=== PATIENT | female | born 1975 | race African-American/Black ===

== ENCOUNTER 2021-09-17 01:49 | Emergency (ER) | payer OTHER ==
[~2021-09-17] VITALS: Ht 188 cm; Wt 90.7 kg
--- NOTE | 2021-09-17 02:00 | NUR ---
Patient BIB [facility] accompanied by [employer] from [facility] c/o of chest pain, sudden onset, nonradiating. Patient was given nitro and ASA COPY READER. VSS, NAD.
--- NOTE | 2021-09-17 02:10 | NUR ---
SAURABH GUTIÉRREZ at bedside for MSE.
[2021-09-17] MEDS ORDERED: HYDROCODONE/APAP 10-325 MG TABLET PO ONE (02:15)
[2021-09-17] MEDS ORDERED: ONDANSETRON ODT 4 MG TAB.RAPDIS SL ONE (02:15)
[2021-09-17] MEDS ORDERED: NITROGLYCERIN OINT 1 GM PACKET TP ONE ×2 (02:15→02:46)
[2021-09-17 02:40] VITALS: BP 134/75
[2021-09-17] MEDS ORDERED: ONDANSETRON ODT 4 MG TAB.RAPDIS ONE (02:46)
[2021-09-17] MEDS ORDERED: HYDROCODONE/APAP 10-325 MG TABLET ONE (02:46)
[2021-09-17 02:53] LABS: HEMATOCRIT 39.8 % (31.2-41.9); MEAN CORPUSCULAR HEMOGLOBIN 30.7 uug (24.7-32.8); MEAN CORPUSCULAR VOLUME 90.5 fL (75.5-95.3); PLATELET COUNT (AUTO) 233 K/uL (179-408)
[2021-09-17 03:00] LABS: CARBON DIOXIDE 29 mmol/L (21-32); CHLORIDE 103 mmol/L (98-107); CREATININE 1.2 mg/dL (0.6-1.3); GLUCOSE 108 mg/dL (74-106); POTASSIUM 4.1 mmol/L (3.5-5.1); UREA NITROGEN, BLOOD 14 mg/dL (7-18)
[2021-09-17 03:09] LABS: ETHANOL < 3 MG/DL (0-0)
[2021-09-17 03:13] LABS: ALANINE AMINOTRANSFERASE 25 U/L (14-59); ALKALINE PHOSPHATASE 81 U/L (50-136); ASPARTATE AMINOTRANSFERASE 21 U/L (15-37); BILIRUBIN,DIRECT 0.1 mg/dL (0.0-0.2); BILIRUBIN,TOTAL 0.5 mg/dL (0.2-1.0)
[2021-09-17 03:15] LABS: ACETAMINOPHEN < 2.0 ug/mL (10-30)
--- NOTE | 2021-09-17 03:15 | NUR ---
Urine done and sent to lab.
[2021-09-17 03:40] LABS: *BILIRUBIN,URIN NEGATIVE (NEGATIVE); *BLOOD, URINE NEGATIVE (NEGATIVE); *CLARITY,URINE CLEAR (CLEAR); *COLOR,URINE YELLOW (YELLOW); *KETONES,URINE NEGATIVE (NEGATIVE); LEUKOCYTE ESTERASE ,URINE TRACE (NEGATIVE); NITRITE, URINE NEGATIVE (NEGATIVE); PH,URINE 6.5 (5.0-8.0); UGLUCOSE NEGATIVE (NEGATIVE)
[2021-09-17 03:49] LABS: *AMPHETAMINE, URINE POSITIVE (NEGATIVE); *CANNABINOID, URINE NEGATIVE (NEGATIVE); *COCCAINE, URINE NEGATIVE (NEGATIVE); *OPIATE, URINE NEGATIVE (NEGATIVE); *PHENCYCLIDINE SCREEN,URINE NEGATIVE (NEGATIVE)
[2021-09-17 03:51] LABS: BACTERIA,URINE MANY /HPF (NONE SEEN); RBC,URINE 0-3 /HPF (0-3); SQUAMOUS EPITHELIAL CELL,UR FEW /HPF (NONE SEEN)
--- NOTE | 2021-09-17 06:20 | NUR ---
Called [facility], spoke with Art regarding patient's voluntary psychiatric admission and faxed patient's clinical summary.
--- NOTE | 2021-09-17 12:41 | NUR ---
PT WAS TRANSFERED TO [facility] VIA BLS AMBULANCE. REPORT WAS GIVEN TO REED HOLLAND AND TO AMSULANCE EMT.
== END 2021-09-17 12:44 ==
LOC: ER 02:04
DX: R07.9 Chest pain, unspecified (principal); F32.A Depression, unspecified; F17.210 Nicotine dependence, cigarettes, uncomplicated; F15.10 Other stimulant abuse, uncomplicated; Z59.01 Sheltered homelessness; Z79.890 Hormone replacement therapy; R00.0 Tachycardia, unspecified; Z20.822 Contact with and (suspected) exposure to COVID-19; F41.9 Anxiety disorder, unspecified; R91.8 Other nonspecific abnormal finding of lung field
CPT/HCPCS: 36415; 71045; 84484; 85025; 85730; 87077; 87086; 93005; A4663; G0480; Q0162

== ENCOUNTER 2022-01-19 03:03 | Inpatient (IN) | payer OTHER ==
[~2022-01-19] VITALS: Ht 188 cm; Wt 113.4 kg
--- NOTE | 2022-01-19 03:20 | NUR ---
pt came in for c/o cough and sob for 6 days.
--- NOTE | 2022-01-19 03:30 | NUR ---
Dr. Dai in room for JANUSZ.
[2022-01-19 03:49] LABS: HEMATOCRIT 38.7 % (31.2-41.9); MEAN CORPUSCULAR HEMOGLOBIN 30.5 uug (24.7-32.8); MEAN CORPUSCULAR VOLUME 90.6 fL (75.5-95.3); PLATELET COUNT (AUTO) 249 K/uL (179-408)
[2022-01-19 03:53] LABS: CREATININE 1.1 mg/dL (0.6-1.3); POTASSIUM 4.1 mmol/L (3.5-5.1)
[2022-01-19] MEDS ORDERED: DEXAMETHASONE SOD PHOSPHATE 4 MG INJ IV ONE (04:00)
[2022-01-19] MEDS ORDERED: DOXYCYCLINE HYCLATE 100 MG TABLET PO ONE (04:00)
[2022-01-19] MEDS ORDERED: CEFTRIAXONE 1 G in IV DEXTROSE 5% 50 ML IV ONE (04:15)
[2022-01-19] MEDS ORDERED: DEXAMETHASONE SOD PHOSPHATE 10 MG INJ ONE ×2 (04:17→04:18)
[2022-01-19] MEDS ORDERED: DOXYCYCLINE HYCLATE 100 MG TABLET ONE (04:17)
[2022-01-19] MEDS ORDERED: CEFTRIAXONE /D5W 50ML IVPB **ER PYXIS IV ONE (04:30)
[2022-01-19] MEDS ORDERED: ASPIRIN 81 MG TAB.CHEW PO ONE (05:30)
[2022-01-19] MEDS ORDERED: FUROSEMIDE 20 MG TABLET PO ONE (05:30)
--- NOTE | 2022-01-19 05:33 | NUR ---
pt pulled out her iv despite multiple iv attempts two nurses are unable to obtain iv access. A midline was ordered by the er md.
[2022-01-19] MEDS ORDERED: ASPIRIN 81 MG TAB.CHEW ONE (05:37)
[2022-01-19] MEDS ORDERED: CEFTRIAXONE 1 G VIAL ONE (05:37)
[2022-01-19] MEDS ORDERED: FUROSEMIDE 40 MG TABLET ONE (05:38)
[2022-01-19] MEDS ORDERED: LIDOCAINE HCL 1% 20 ML VIAL ONE (05:39)
[2022-01-19] MEDS ORDERED: CEFTRIAXONE 1 G VIAL IM ONE (05:45)
[2022-01-19 06:11] LABS: *BILIRUBIN,URIN NEGATIVE (NEGATIVE); *CLARITY,URINE CLOUDY (CLEAR); *COLOR,URINE YELLOW (YELLOW); *KETONES,URINE NEGATIVE (NEGATIVE); LEUKOCYTE ESTERASE ,URINE 2+ (NEGATIVE); NITRITE, URINE POSITIVE (NEGATIVE); PH,URINE 5.5 (5.0-8.0); UGLUCOSE NEGATIVE (NEGATIVE)
[2022-01-19 06:12] LABS: *BLOOD, URINE TRACE (NEGATIVE)
[2022-01-19] MEDS ORDERED: ESTR0.5T PO (06:12)
[2022-01-19 06:17] LABS: BACTERIA,URINE MANY /HPF (NONE SEEN); SQUAMOUS EPITHELIAL CELL,UR MANY /HPF (NONE SEEN); WBC,URINE 80-100 /HPF (0-3)
[2022-01-19 06:22] LABS: *AMPHETAMINE, URINE POSITIVE (NEGATIVE); *CANNABINOID, URINE NEGATIVE (NEGATIVE); *COCCAINE, URINE NEGATIVE (NEGATIVE); *OPIATE, URINE NEGATIVE (NEGATIVE); *PHENCYCLIDINE SCREEN,URINE NEGATIVE (NEGATIVE)
[2022-01-19] MEDS ORDERED: ACETAMINOPHEN 325 MG TABLET PO PRN (06:45)
[2022-01-19] MEDS ORDERED: ONDANSETRON 4 MG/2 ML VIAL IV PRN (06:45)
[2022-01-19] MEDS ORDERED: CEFTRIAXONE 1 G in IV DEXTROSE 5% 50 ML IV SCH (06:45)
[2022-01-19] MEDS ORDERED: MAGNESIUM HYDROXIDE 30 ML LIQUID UDC PO PRN (06:45)
[2022-01-19] MEDS ORDERED: REMEDY ESSENTIAL ZINC PASTE 113 GM TP PRN (06:45)
[2022-01-19] MEDS ORDERED: IPRATROPIUM BROMIDE 0.5 MG/2.5 ML NEBU NEB PRN (06:45)
[2022-01-19] MEDS ORDERED: ALBUTEROL SULFATE 1.25 MG/3 ML NEBU NEB PRN (06:45)
--- NOTE | 2022-01-19 06:45 | NUR ---
PATIENTS OXYCODONE 10MG COUNTED WITH ANOTHER RN AND TAKEN DOWN TO PHARMACY PER PROTOCOL. ALL NEEDS ATTENDED.
[2022-01-19] MEDS ORDERED: ENOXAPARIN SODIUM 40 MG/0.4 ML DISP.SYRIN SQ ONE (08:57)
[2022-01-19] MEDS: ENOXAPARIN SODIUM 40 MG/0.4 ML DISP.SYRIN SQ SCH (09:15)
[2022-01-19] MEDS: IV NS 1000 ML 1,000 ML IV PRN ×2 (10:00→21:09)
[2022-01-19] MEDS ORDERED: SWABABLE VALVE TRANSFER SET EA MC ONE (10:07)
[2022-01-19] MEDS ORDERED: IOHEXOL 350 100 ML INFUS..BTL ONE (10:07)
[2022-01-19] MEDS ORDERED: IV NORMAL SALINE 250 ML IV ONE (10:07)
[2022-01-19] MEDS ORDERED: methylPREDNISolone SOD SUCC 40 MG/ML VIAL ONE (14:14)
[2022-01-19] MEDS: methylPREDNISolone SOD SUCC 40 MG/ML VIAL IV SCH ×2 (14:19→22:04)
--- NOTE | 2022-01-19 19:18 | NUR ---
Assumed care of patient from day shift RN. Patient lying in bed, asleep. Appears comfortable. No coughing noted at this time.
--- NOTE | 2022-01-19 20:20 | NUR ---
RECEIVED PATIENT VIA GURNEY FROM ER. PATIENT IS A/O X4. DENIES ANY PAIN UPON ADMISSION TO THE FLOOR. NO RESP. DISTRESS NOTED. VS WNL. HEPLOCK NOTED TO RIGHT FA #20 GAUGE. ORIENTED TO ROOM AND CALL LIGHT. CALL LIGHT IN REACH. ALL NEEDS ATTENDED. WILL CONTINUE TO MONITOR AND ASSESS.
--- NOTE | 2022-01-19 20:30 | NUR ---
Pt. admitted to Medical surgical floor room 327, under care of Dr. Gonzalez. Belongs List completed.
[2022-01-19] MEDS ORDERED: CEFTRIAXONE 2 G in IV DEXTROSE 5% 100 ML IV SCH (21:00)
[2022-01-19 21:30] VITALS: BP 108/48
[2022-01-20 04:24] VITALS: BP 114/82
[2022-01-20] MEDS: methylPREDNISolone SOD SUCC 40 MG/ML VIAL IV SCH (06:13)
[2022-01-20 06:35] LABS: HEMATOCRIT 37.5 % (31.2-41.9); MEAN CORPUSCULAR VOLUME 90.7 fL (75.5-95.3); PLATELET COUNT (AUTO) 285 K/uL (179-408)
[2022-01-20 06:48] LABS: CREATININE 1.3 mg/dL (0.6-1.3); MAGNESIUM 1.8 mg/dL (1.8-2.4); PHOSPHOROUS 3.1 mg/dL (2.5-4.9); POTASSIUM 4.4 mmol/L (3.5-5.1)
[2022-01-20] MEDS ORDERED: LOSARTAN POTASSIUM 25 MG TABLET PO SCH (09:00)
[2022-01-20] MEDS: ENOXAPARIN SODIUM 40 MG/0.4 ML DISP.SYRIN SQ SCH (09:26)
[2022-01-20] MEDS: IV NS 1000 ML 1,000 ML IV PRN (09:49)
[2022-01-20] MEDS ORDERED: AZITHROMYCIN IV 500 MG in IV DEXTROSE 5% 250 ML IV SCH (11:00)
[2022-01-20 11:38] VITALS: BP 124/88
--- NOTE | 2022-01-20 12:15 | NUR ---
IV SITE IS VERY POSITIONAL AND PATIENT IS A VERY HARD STICK MD NOTIFIED WITH NEW ORDERS AND NOTED.
--- NOTE | 2022-01-20 13:58 | NUR ---
Social work consult was requested for a patient on [facility] for homeless resources. Patient is 46-year-old female admitted to the hospital for pneumonia. Upon social science research assistant assessment, patient is alert and oriented X3. Patient could not state the date. Patient appears lethargic. Patient presents with congruent mood and full range affect. Patient presents with poor judgement and insight. SW explored patients support system. Patient states her primary contact centre supervisor is her grandmother, James Tubbs ([phone]) and they have a good relationship. Patient states that her grandmother, James ([phone]) lives in [place], [place]. Patient states that she is living at [address] [place] [id number] [facility] ([phone]) for nine months. SW gave the patient homeless resources and placed them in the chart. Homeless waiver was signed and given to the patient and a copy was placed in the chart. SW explored patients financial status. Patient states that she is receiving social security disability. Patient is not currently driving. SW explored patients history of substance abuse. Patient states that she has a history of using crystal meth and states that she hasnt used crystal meth for over a month. The toxicology screening reports positive for amphetamine. SW offered patient resources for substance abuse from [address] [address] ([phone]), [facility] [address] [facility] [address] ([phone]), and [address] [address] ([phone]). The patient refused the resources. SW placed the resources in the patients chart. SW explored patients history of psychiatric diagnosis. Patient states she has a history of bipolar disorder, major depression and schizoaffective disorder. Patient states she has been seeing a therapist for over a year. Patient states she is not currently taking any medication. Patient denies suicidal or homicidal ideation. The discharge plan is to be discharged to be discharged to [address] [address] [facility] ([phone]). Patient will be offered a TAP card if needed. This loan underwriter spoke with Gus, nurse outreach case manager, who will follow up with discharge plan.
[2022-01-20 16:00] VITALS: BP 115/67
[2022-01-20] MEDS ORDERED: ALPRAZOLAM 0.5 MG TABLET PO PRN (16:00)
--- NOTE | 2022-01-20 16:29 | NUR ---
PATIENT IS VERY ANXIOUS WANTS TO LEAVE STATED TAKES MARIJUANA AT HOME TO RELAX NEEDS SOMETHING TO RELAX DR LOVELACE NOTIFIED WITH ORDER FOR XANAX GIVEN AT THIS TIME ORDERED PATIENT REASSURED THAT HE NEEDS TO BE IN THE HOSPITAL A WHILE LONGER BECAUSE HE NEEDS HIS IV ANTIBIOTICS AND HE EXPRESSED UNDERSTANDING.WILL CONTINUE TO OBSERVE.
--- NOTE | 2022-01-20 18:45 | NUR ---
DR JESSICA HERE TO SEE PATIENT BUT PATIENT WAS IN THE BATHROOM AND HE STATED WILL ATTEMPT TO COME BACK TO SEE PATIENT TONITE IVF DISCONNECTED AT THIS TIME PER PATIENTS REQUEST STATED NEED TO REST FOR A WHILE WILL ENDORSE TO RECONNECT LATER.
--- NOTE | 2022-01-20 19:05 | NUR ---
PATIENT IN HALLWAY, APPEARS UPSET, STATING HE WANTS TO GET HIS MEDICATION AND LEAVE. RN AT PATIENTS SIDE. RN REMOVED MID-LINE NOTED TO LEFT UPPER ARM AND PATIENT SIGNED AMA FORM. PATIENT LEFT FACILITY IN STABLE CONDITION. NOTIFIED OF PATIENTS AMA.
[2022-01-20] MEDS ORDERED: ATORVASTATIN 10 MG TABLET PO SCH (21:00)
[2022-01-21] MEDS ORDERED: ESTRADIOL 1 MG TABLET PO SCH (09:00)
[2022-01-21] MEDS ORDERED: ESTRADIOL PO SCH (09:00)
== END 2022-01-20 19:15 | disposition left against medical advice (07) | DRG 720 ==
LOC: ER 03:06 → TRANSITION 07:44 → MEDSURG3 20:17
PROVIDERS: ADMIT Nurse Practitioner Acute Care; ATTEND Internal Medicine
PROC: 05H633Z Insertion of Infusion Device into Left Subclavian Vein, Percutaneous Approach (ICD-10-PCS; principal; 2022-01-20)
PROC: B547ZZA Ultrasonography of Left Subclavian Vein, Guidance (ICD-10-PCS; principal; 2022-01-20)
DX: A41.9 Sepsis, unspecified organism (principal); I50.23 Acute on chronic systolic (congestive) heart failure; J18.9 Pneumonia, unspecified organism; J90 Pleural effusion, not elsewhere classified; I42.7 Cardiomyopathy due to drug and external agent; N39.0 Urinary tract infection, site not specified; Z20.822 Contact with and (suspected) exposure to COVID-19; Z59.00 Homelessness unspecified; F19.10 Other psychoactive substance abuse, uncomplicated; F17.210 Nicotine dependence, cigarettes, uncomplicated; F15.10 Other stimulant abuse, uncomplicated; R73.03 Prediabetes; R77.8 Other specified abnormalities of plasma proteins; I34.0 Nonrheumatic mitral (valve) insufficiency; I25.10 Atherosclerotic heart disease of native coronary artery without angina pectoris; E05.90 Thyrotoxicosis, unspecified without thyrotoxic crisis or storm; B96.20 Unspecified Escherichia coli [E. coli] as the cause of diseases classified elsewhere; F99 Mental disorder, not otherwise specified
CPT/HCPCS: 36415; 71045; 71275; 83605; 83735; 84100; 84443; 84484; 85025; 87040; 87077; 87086; 93005; 93307; A4663; G0378; J0456; J0696; J1100; J1650; J2920; J3490; J7040; J7050; Q9967; U0003

== ENCOUNTER 2022-01-25 04:26 | Emergency (ER) | payer OTHER ==
[~2022-01-25] VITALS: Ht 188 cm; Wt 113.4 kg
[~2022-01-25 04:26] MED LIST: ESTR0.5T PO
--- NOTE | 2022-01-25 04:40 | NUR ---
Dr. De La Paz at bedside for MSE
[2022-01-25] MEDS ORDERED: HYDROMORPHONE 1 MG/1 ML DISP.SYRIN IV ONE (04:45)
[2022-01-25] MEDS ORDERED: ONDANSETRON 4 MG/2 ML VIAL IV ONE (04:45)
[2022-01-25] MEDS ORDERED: HYDROMORPHONE 1 MG/1 ML DISP.SYRIN ONE (05:00)
[2022-01-25] MEDS ORDERED: ONDANSETRON 4 MG/2 ML VIAL ONE (05:00)
--- NOTE | 2022-01-25 05:42 | NUR ---
Lab at bedside
[2022-01-25] MEDS ORDERED: levoFLOXacin 750MG/D5W 150 ML IV ONE (05:43)
[2022-01-25] MEDS ORDERED: levoFLOXacin 750 MG/D5W 150 ML PIGGYBACK IV ONE (05:45)
[2022-01-25 05:47] LABS: *BILIRUBIN,URIN NEGATIVE (NEGATIVE); *BLOOD, URINE NEGATIVE (NEGATIVE); *CLARITY,URINE CLEAR (CLEAR); *COLOR,URINE YELLOW (YELLOW); *KETONES,URINE NEGATIVE (NEGATIVE); *UROBILINOGEN,URINE 0.2 E.U./dl (NORMAL); LEUKOCYTE ESTERASE ,URINE NEGATIVE (NEGATIVE); NITRITE, URINE NEGATIVE (NEGATIVE); PH,URINE 5.5 (5.0-8.0); UGLUCOSE NEGATIVE (NEGATIVE)
[2022-01-25 05:59] LABS: *AMPHETAMINE, URINE POSITIVE (NEGATIVE); *CANNABINOID, URINE NEGATIVE (NEGATIVE); *COCCAINE, URINE NEGATIVE (NEGATIVE); *OPIATE, URINE NEGATIVE (NEGATIVE); *PHENCYCLIDINE SCREEN,URINE NEGATIVE (NEGATIVE)
[2022-01-25 06:20] LABS: PLATELET COUNT (AUTO) 282 K/uL (179-408)
[2022-01-25 06:22] LABS: HEMATOCRIT 37.9 % (31.2-41.9); MEAN CORPUSCULAR HEMOGLOBIN 30.4 uug (24.7-32.8); MEAN CORPUSCULAR VOLUME 91.8 fL (75.5-95.3)
[2022-01-25 07:08] LABS: ALANINE AMINOTRANSFERASE 63 U/L (14-59); ALKALINE PHOSPHATASE 89 U/L (50-136); ASPARTATE AMINOTRANSFERASE 49 U/L (15-37); BILIRUBIN,DIRECT 0.1 mg/dL (0.0-0.2); BILIRUBIN,TOTAL 0.4 mg/dL (0.2-1.0); CARBON DIOXIDE 25 mmol/L (21-32); CHLORIDE 106 mmol/L (98-107); CREATININE 1.1 mg/dL (0.6-1.3); GLUCOSE 131 mg/dL (74-106); POTASSIUM 4.5 mmol/L (3.5-5.1); UREA NITROGEN, BLOOD 17 mg/dL (7-18)
[2022-01-25] MEDS ORDERED: FUROSEMIDE 40 MG/4 ML VIAL IV ONE (07:45)
[2022-01-25 07:47] LABS: BACTERIA,URINE NONE SEEN /HPF (NONE SEEN); RBC,URINE 0-3 /HPF (0-3); SQUAMOUS EPITHELIAL CELL,UR FEW /HPF (NONE SEEN); WBC,URINE 0-3 /HPF (0-3)
--- NOTE | 2022-01-25 07:47 | NUR ---
PT IS RESTING IN BED COMFORTABLY. NO S/S OF ACUTE DISTRESS AT THIS TIME. CONTINUE TO MONITOR THE PT.
[2022-01-25] MEDS ORDERED: FUROSEMIDE 40 MG/4 ML VIAL ONE (07:54)
[2022-01-25 08:31] LABS: LIPASE 322 U/L (73-393)
[2022-01-25] MEDS ORDERED: ACETAMINOPHEN 325 MG TABLET PO PRN (09:15)
[2022-01-25] MEDS ORDERED: MAGNESIUM HYDROXIDE 30 ML LIQUID UDC PO PRN (09:15)
[2022-01-25] MEDS ORDERED: ONDANSETRON 4 MG/2 ML VIAL IV PRN (09:15)
[2022-01-25] MEDS ORDERED: LORAZEPAM 2 MG/1 ML VIAL IV PRN (09:15)
[2022-01-25] MEDS ORDERED: HYDROCODONE/APAP 5-325MG TABLET PO PRN (09:15)
[2022-01-25] MEDS ORDERED: ENOXAPARIN SODIUM 40 MG/0.4 ML DISP.SYRIN SQ SCH (09:15)
[2022-01-25] MEDS ORDERED: MORPHINE SULFATE 2 MG/1 ML DISP.SYRIN IV PRN (09:15)
[2022-01-25] MEDS ORDERED: ENOXAPARIN SODIUM 40 MG/0.4 ML DISP.SYRIN SQ ONE (09:56)
[2022-01-25] MEDS ORDERED: MORPHINE SULFATE 4 MG/1 ML DISP.SYRIN ONE (09:57)
--- NOTE | 2022-01-25 10:06 | NUR ---
MAO ALCANTAR REAMING MACHINE TENDER , EVALUATED THE PT. PT IS RESTING IN BED COMFORTABLY. CONTINUE TO MONITOR THE PT.
[2022-01-25] MEDS ORDERED: HOME MED MISCELLANEOUS XX SCH (12:00)
--- NOTE | 2022-01-25 12:00 | NUR ---
PT DECIDED TO LEAVE HOSPITAL AMA. JOSÉ ALCANTAR WAS CALLED TO TALK TO THE PT. PT WAS EXPLAINED ALL RISKS OF LEAVING HOSPITAL AMA. PT WERBALIZED FULL UNDERSTANDING OF ALL RISKS OF LEAVING HOSPITAL AMA. PT SIGNED AMA FORM AND LEFT HOSPITAL BY TAXI. NO S/S OF DISTRESS AT THE TIME OF DISCHARGE, NO SOB, NO V/V , PT DENIES PAIN, GAIT IS STABLE.
[2022-01-25 12:08] VITALS: BP 128/64
[2022-01-25] MEDS ORDERED: LOSA50TA39 PO (12:21)
[2022-01-26] MEDS ORDERED: PANTOPRAZOLE SODIUM 40 MG TABLET.DR PO SCH (07:00)
== END 2022-01-25 14:07 | disposition left against medical advice (07) ==
LOC: ER 04:27
DX: J18.9 Pneumonia, unspecified organism (principal); R11.10 Vomiting, unspecified; G92.8 Other toxic encephalopathy; Z59.00 Homelessness unspecified; I11.0 Hypertensive heart disease with heart failure; I50.9 Heart failure, unspecified; F19.10 Other psychoactive substance abuse, uncomplicated; G62.9 Polyneuropathy, unspecified; Z20.822 Contact with and (suspected) exposure to COVID-19; F17.210 Nicotine dependence, cigarettes, uncomplicated
CPT/HCPCS: 99285; 74176; 96374; 96375; 71045; 87426; 80076; 80048; 83690; 85025; 84145; 87400; 87040 ×2; 84484 ×2; 36415; 93005; 96372; 80307; 81001; J1650; J1940; J1956; J2405; J1170; J2270; A4663

== ENCOUNTER 2022-01-26 07:56 | Emergency (ER) | payer OTHER ==
[~2022-01-26] VITALS: Ht 188 cm; Wt 113.4 kg
[~2022-01-26 07:56] MED LIST changes: +LOSA50TA39 PO
--- NOTE | 2022-01-26 08:18 | NUR ---
Urine sent to lab.
[2022-01-26 08:21] LABS: *BILIRUBIN,URIN NEGATIVE (NEGATIVE); *BLOOD, URINE NEGATIVE (NEGATIVE); *CLARITY,URINE CLEAR (CLEAR); *COLOR,URINE YELLOW (YELLOW); *KETONES,URINE NEGATIVE (NEGATIVE); *UROBILINOGEN,URINE 0.2 E.U./dl (NORMAL); LEUKOCYTE ESTERASE ,URINE NEGATIVE (NEGATIVE); NITRITE, URINE NEGATIVE (NEGATIVE); PH,URINE 5.5 (5.0-8.0); UGLUCOSE NEGATIVE (NEGATIVE)
[2022-01-26 08:36] LABS: HEMATOCRIT 37.9 % (31.2-41.9); MEAN CORPUSCULAR HEMOGLOBIN 30.8 uug (24.7-32.8); MEAN CORPUSCULAR VOLUME 91.8 fL (75.5-95.3); PLATELET COUNT (AUTO) 308 K/uL (179-408)
--- NOTE | 2022-01-26 08:45 | NUR ---
Tried to insert IV in patient and patient stated that the nurse was waking her up. Became verbally aggressive. Walked out of ED abruptly.
--- NOTE | 2022-01-26 08:45 | NUR ---
Patient refused to sign AMA form.
[2022-01-26 08:48] LABS: CREATININE 1.1 mg/dL (0.6-1.3); POTASSIUM 4.7 mmol/L (3.5-5.1)
[2022-01-26 08:57] LABS: BILIRUBIN,DIRECT 0.1 mg/dL (0.0-0.2); BILIRUBIN,TOTAL 0.3 mg/dL (0.2-1.0)
== END 2022-01-26 08:45 | disposition left against medical advice (07) ==
LOC: ER 07:57
DX: R06.02 Shortness of breath (principal); I11.0 Hypertensive heart disease with heart failure; I50.20 Unspecified systolic (congestive) heart failure; Z59.00 Homelessness unspecified; F15.10 Other stimulant abuse, uncomplicated; R05.9 Cough, unspecified; R52 Pain, unspecified; Z53.29 Procedure and treatment not carried out because of patient's decision for other reasons; R50.9 Fever, unspecified; R00.0 Tachycardia, unspecified
CPT/HCPCS: 36415; 71045; 83605; 84484; 85025; 85730; 87040; 87086; 93005; A4663